=== PATIENT | female | born 1980 | race Caucasian/White ===

== ENCOUNTER 2020-01-06 15:42 | Emergency (ER) | payer OTHER ==
[~2020-01-06] VITALS: Ht 173 cm; Wt 60.0 kg
--- NOTE | 2020-01-06 16:10 | ED Fall/Injury ---
General Stated Complaint: ARM PAIN Source: patient, RN/MD, old records Exam Limitations: no limitations History of Present Illness Date Seen by Provider: Jan 06, 2020 Time Seen by Provider: 16:00 Initial Comments This patient is a 39-year-old female presents to the emergency department significant bruising and swelling to the left upper extremity. Patient states that she was out walking in a [place] with family and she slipped and fell landing on left arm this injury happened 3-4 days ago. Patient does have a history of any injury to left arm for which she had surgery for but this was 3 years ago. Patient states that she came to the emergency department yesterday but there was a significant line so she left and went home. Patient comes back today for significant bruising or swelling. Patient is demanding pain medication. I advised the patient that we do a medical screening exam and evaluate for any fractures. We will dress medication issues after a definitive diagnosis is made. Occurred: other Severity: moderate Injuries/Pain Location: upper extremity Allergies and Home Medications Allergies Coded Allergies: gabapentin (Verified Allergy, Mild, ulcers, 01/06/20) Pt states "ulcers in my mouth" Patient Home Medication List Home Medication List Reviewed: Yes Review of Systems Review of Systems Constitutional: No no symptoms reported, No see HPI, No chills, No diaphoresis, No dizziness, No fever, No malaise, No weakness, No weight gain, No weight loss, No other Eyes: Denies No Symptoms Reported, Denies See HPI, Denies Blindness, Denies Blurred Vision, Denies Drainage, Denies Decreased Acuity, Denies Foreign Body Sensation, Denies Inflammation, Denies Pain, Denies Photophobia, Denies Previous Injury, Denies Shadows, Denies Tunnel Vision, Denies Vision Changes, Denies Contact Lenses, Denies Glasses, Denies Other Ears, Nose, Mouth, Throat: denies no symptoms reported, denies see HPI, denies ear pain, denies ear discharge, denies nose pain, denies nose discharge, denies epistaxis, denies mouth pain, denies mouth swelling, denies loose teeth, denies throat pain, denies throat swelling Respiratory: No no symptoms reported, No see HPI, No cough, No dyspnea on exertion, No hemoptysis, No orthopnea, No phlegm, No short of breath, No stridor, No wheezing, No other Cardiovascular: No no symptoms reported, No see HPI, No chest pain, No edema, No Hx of Intervention, No palpitations, No syncope, No vascular heart diseas, No other Gastrointestinal: No RUQ, No LUQ, No RLQ, No LLQ, No no symptoms reported, No see HPI, No abdominal pain, No constipation, No diarrhea, No dysphagia, No h ematemesis, No heartburn, No jaundice, No loss of appetite, No melena, No nausea, No vomiting, No other Genitourinary: No no symptoms reported, No see HPI, No decreased output, No discharge, No dysuria, No frequency, No hematuria, No hesitancy, No incontinence, No nocturia, No pain, No other Musculoskeletal: No no symptoms reported; see HPI; No back pain, No gout; joint pain; No joint swelling, No muscle pain, No muscle stiffness, No muscle cramps, No muscle twitching, No muscle weakness, No neck pain, No other Skin: No no symptoms reported, No see HPI, No change in color, No change in hair/nails, No dryness, No hx of skin cancer, No lesions, No lumps, No pruritus, No rash, No other All Other Systems Reviewed Negative Unless Noted: Yes Past Hicczyn-Bqdbva-Eryczl Hx Patient Social History Recent Foreign Travel: No Contact w/Someone Who Travel: No Physical Exam Vital Signs Vital Signs - First Documented 01/06/20 16:13 Temp 36.8 Pulse 112 Resp 20 B/P (MAP) 143/103 (116) Pulse Ox 98 O2 Delivery Room Air Capillary Refill : Height, Weight, BMI Height: '" Weight: lbs. oz. kg; BMI Method: General Appearance: WD/WN, no apparent distress Cardiovascular: normal peripheral pulses, regular rate, rhythm, no edema, no gallop, no JVD, no murmur Respiratory: chest non-tender, lungs clear, normal breath sounds, no resp iratory distress, no accessory muscle use Gastrointestinal: normal bowel sounds, non tender, soft, no organomegaly, no pulsatile mass Back: normal inspection, no CVA tenderness, no vertebral tenderness Extremities: swelling, other (treat decreased range of motion of left elbow. Patient has swelling and bruising noted. This injury took place about 3-4 days ago.) Progress/Results/Core Measures Results/Orders Lab Results Laboratory Tests Test 01/06/20 16:45 7/14/20 16:58 Range/Units Urine Color PALE YELLOW Urine Clarity CLEAR Urine pH 7.0 5-9 Urine Specific [place] <=1.005 1.016-1.022 Urine Protein NEGATIVE NEGATIVE Urine Glucose (UA) NEGATIVE NEGATIVE Urine Ketones NEGATIVE NEGATIVE Urine Nitrite NEGATIVE NEGATIVE Urine Bilirubin NEGATIVE NEGATIVE Urine Urobilinogen 0.2 < = 1.0 MG/DL Urine Leukocyte Esterase 1+ H NEGATIVE Urine RBC (Auto) NEGATIVE NEGATIVE Urine RBC NONE /HPF Urine WBC 0-2 /HPF Urine Squamous Epithelial Cells 2-5 /HPF Urine Crystals NONE /LPF Urine Bacteria TRACE /HPF Urine Casts NONE /LPF Urine Mucus NEGATIVE /LPF Urine Culture Indicated NO Urine Opiates Screen NEGATIVE NEGATIVE Urine Oxycodone Screen NEGATIVE NEGATIVE Urine Methadone Screen NEGATIVE NEGATIVE Urine Propoxyphene Screen NEGATIVE NEGATIVE Urine Barbiturates Screen NEGATIVE NEGATIVE Ur Tricyclic Antidepressants Screen NEGATIVE NEGATIVE Urine Phencyclidine Screen NEGATIVE NEGATIVE Urine Amphetamines Screen POSITIVE H NEGATIVE Urine Methamphetamines Screen NEGATIVE NEGATIVE Urine Benzodiazepines Screen POSITIVE H NEGATIVE Urine Cocaine Screen NEGATIVE NEGATIVE Urine Cannabinoids Screen NEGATIVE NEGATIVE White Blood Count 5.8 4.3-11.0 10^3/uL Red Blood Count 3.58 L 4.35-5.85 10^6/uL Hemoglobin 12.4 11.5-16.0 G/DL Hematocrit 36 35-52 % Mean Corpuscular Volume 101 H 80-99 FL Mean Corpuscular Hemoglobin 35 H 25-34 PG Mean Corpuscular Hemoglobin Concent 34 32-36 G/DL Red Cell Distribution Width 12.7 10.0-14.5 % Platelet Count 198 130-400 10^3/uL Mean Platelet Volume 9.9 7.4-10.4 FL Neutrophils (%) (Auto) 57 42-75 % Lymphocytes (%) (Auto) 30 12-44 % Monocytes (%) (Auto) 10 0-12 % Eosinophils (%) (Auto) 1 0-10 % Basophils (%) (Auto) 1 0-10 % Neutrophils # (Auto) 3.4 1.8-7.8 X 10^3 Lymphocytes # (Auto) 1.8 1.0-4.0 X 10^3 Monocytes # (Auto) 0.6 0.0-1.0 X 10^3 Eosinophils # (Auto) 0.1 0.0-0.3 10^3/uL Basophils # (Auto) 0.1 0.0-0.1 10^3/uL Sodium Level 143 135-145 MMOL/L Potassium Level 3.7 3.6-5.0 MMOL/L Chloride Level 101 98-107 MMOL/L Carbon Dioxide Level 29 21-32 MMOL/L Anion Gap 13 5-14 MMOL/L Blood Urea Nitrogen 9 7-18 MG/DL Creatinine 0.61 0.60-1.30 MG/DL Estimat Glomerular Filtration Rate > 60 BUN/Creatinine Ratio 15 Glucose Level 83 70-105 MG/DL Calcium Level 9.5 8.5-10.1 MG/DL My Orders Orders - MARSHA GALLAGHER MD Forearm 2 View Left (01/06/20 16:04) Elbow 2 View Left (01/06/20 16:04) Humerus 2 View Left (01/06/20 16:04) Ice: Apply To Affected Area (01/06/20 16:04) Hydrocodone/Apap 5/325 Tablet (Lortab 5 (01/06/20 16:30) Ed Iv/Invasive Line Start (01/06/20 16:39) Basic Metabolic Panel (01/06/20 16:39) Cbc With Automated Diff (01/06/20 16:39) Urinalysis (01/06/20 16:39) Drug Screen Stat (Urine) (01/06/20 16:39) Morphine Injection (Morphine Injection (01/06/20 16:39) Ondansetron Injection (Zofran Injectio (01/06/20 16:45) Medications Given in ED Current Medications Medications Dose Ordered Sig/Marilu Route Start Time Stop Time Status Last Admin Dose Admin Ondansetron HCl 4 mg ONCE ONCE IVP 01/06/20 16:45 01/06/20 16:46 DC 01/06/20 16:56 4 MG Vital Signs/I&O 01/06/20 16:13 Temp 36.8 Pulse 112 Resp 20 B/P (MAP) 143/103 (116) Pulse Ox 98 O2 Delivery Room Air Progress Progress Note : Time: 17:27 Progress Note Patient has a significantly displaced olecranon fracture of the left elbow. And a distal humeral fracture. Patient first go to [facility]. Case was discussed with Dr Gutierrez orthopedic surgeon. You have an appointment at 9 AM tomorrow in the clinic. [address] [place] [address] Your appointment is 9 AM. The clinic is [place] [address] [place] ice elevation take medications for pain as instructed. Make sure that she make this appointment. Departure Impression Primary Impression: Fracture of olecranon process of left ulna with intra-articular extension Additional Impression: Humerus distal fracture Disposition: 01 HOME, SELF-CARE Condition: Stable Departure-Patient Inst. Decision time for Depature: 17:29 Patient Instructions: Elbow Fracture (DC) Add. Discharge Instructions: Dr Gutierrez orthopedic surgeon. You have an appointment at 9 AM tomorrow in the clinic. [address] [facility] [address] Your appointment is 9 AM. The clinic is just [place] [address] [place] ice elevation take medications for pain as instructed. Make sure that she make this appointment. Scripts Hydrocodone/Ibuprofen (Hydrocodone-Ibuprofen 5-200 mg) 1 Each Tablet 1 TAB PO Q6H PRN for PAIN-MODERATE MDD 10 TABS for 7 Days, #10 TAB 0 Refills Prov: MARSHA GALLAGHER MD 01/06/20 Diclofenac Sodium (Diclofenac Sodium) 75 Mg Tablet. 75 MG PO BID for 10 Days, #20 TAB 0 Refills Prov: MARSHA GALLAGHER MD 01/06/20 MARSHA GALLAGHER MD Jan 06, 2020 16:09
[2020-01-06] MEDS ORDERED: HYDROcodone/APAP 5 MG/325 MG (LORTAB) TAB PO ONE (16:30)
[2020-01-06] MEDS ORDERED: morphine INJ 10 MG/ML 1ML (SYR OR VIAL) IVP STA (16:39)
--- NOTE | 2020-01-06 16:39 | Diagnostic Imaging Report ---
INDICATION: Fall with left elbow pain. TIME OF EXAM: 04:16 p.m. FINDINGS: Three views of the left elbow were obtained. There is a comminuted fracture through the proximal ulna. This largely involves the olecranon. There is moderate distraction of the proximal olecranon fracture fragment which is retracted by approximately 2.5 cm. Proximal radius is intact. The distal humerus is intact. There is an elbow joint effusion with prominent anterior and posterior fat pads. IMPRESSION: Comminuted olecranon fracture with distraction, as described. Dictated by: Dictated on workstation # [id number]
--- NOTE | 2020-01-06 16:40 | Diagnostic Imaging Report ---
INDICATION: Fall with left arm pain. TIME OF EXAM: 04:23 p.m. FINDINGS: Alignment at the elbow and shoulder appears normal. The humerus is intact. No humerus fracture is seen. Soft tissues are unremarkable. IMPRESSION: No humerus fracture is detected. Dictated by: Dictated on workstation # [id number]
[2020-01-06] MEDS ORDERED: ONDANSETRON 4 MG/2 ML (SDV) Z0FRAN IVP ONE (16:45)
--- NOTE | 2020-01-06 16:45 | Diagnostic Imaging Report ---
INDICATION: Fall several days earlier with worsening pain in the region of the elbow. TECHNIQUE: 2 views of the left forearm. CORRELATION STUDY: None FINDINGS: There is a comminuted fracture involving the proximal ulna. There is significant distraction and displacement main fracture fragments. There is offset of approximately 2.5 cm. Additional obliquely oriented fracture involving the ulna is also present. Slight irregularity about the radial head along its dorsal aspect question of a nondisplaced fracture. There is extensive edema over the region of the elbow and forearm. The remainder of the radius and ulna are intact. There is a cortical thickening at the mid ulna shaft may reflect a previous injury. IMPRESSION: 1. Comminuted, displaced proximal ulna fracture. Question of slight irregularity at the radial head as well. Extensive edema about the elbow and proximal forearm. Dictated by: Dictated on workstation # [id number]
[2020-01-06 16:59] LABS: COLOR,URINE PALE YELLOW
[2020-01-06 17:00] LABS: BACTERIA,URINE TRACE /HPF; BILIRUBIN,URINE NEGATIVE (NEGATIVE); CLARITY,URINE CLEAR; GLUCOSE, URINE (UA) NEGATIVE (NEGATIVE); KETONES,URINE NEGATIVE (NEGATIVE); LEUKOCYTE ESTERASE ,URINE 1+ (NEGATIVE); NITRITE,URINE NEGATIVE (NEGATIVE); PROTEIN,URINE NEGATIVE (NEGATIVE); WBC,URINE 0-2 /HPF
[2020-01-06 17:07] LABS: BASOPHILS % (AUTO) 1 % (0-10); EOSINOPHILS % (AUTO) 1 % (0-10); HEMATOCRIT 36 % (35-52); HEMOGLOBIN 12.4 G/DL (11.5-16.0); LYMPHOCYTES % (AUTO) 30 % (12-44); MEAN CORPUSCULAR HEMOGLOBIN 35 PG (25-34); MEAN CORPUSCULAR HGB CONC 34 G/DL (32-36); MEAN CORPUSCULAR VOLUME 101 FL (80-99); MEAN PLATELET VOLUME 9.9 FL (7.4-10.4); MONOCYTES % (AUTO) 10 % (0-12); NEUTROPHILS % (AUTO) 57 % (42-75); PLATELET COUNT 198 10^3/uL (130-400); RED CELL DISTRIBUTION WIDTH 12.7 % (10.0-14.5); WHITE BLOOD COUNT 5.8 10^3/uL (4.3-11.0)
[2020-01-06 17:08] LABS: BASOPHILS # (AUTO) 0.1 10^3/uL (0.0-0.1); EOSINOPHILS # (AUTO) 0.1 10^3/uL (0.0-0.3); LYMPHOCYTES # (AUTO) 1.8 X 10^3 (1.0-4.0); MONOCYTES # (AUTO) 0.6 X 10^3 (0.0-1.0); NEUTROPHILS # (AUTO) 3.4 X 10^3 (1.8-7.8)
[2020-01-06 17:17] LABS: AMPHETAMINE SCREEN, URINE POSITIVE (NEGATIVE); BARBITURATE SCREEN URINE NEGATIVE (NEGATIVE); BENZODIAZEPINES SCREEN URINE POSITIVE (NEGATIVE); CANNABINOID SCREEN, URINE NEGATIVE (NEGATIVE); COCAINE SCREEN URINE NEGATIVE (NEGATIVE); METHADONE STAT NEGATIVE (NEGATIVE); METHAMPHETAMINE SCREEN URINE S NEGATIVE (NEGATIVE); OPIATE SCREEN URINE NEGATIVE (NEGATIVE); OXYCODONE STAT NEGATIVE (NEGATIVE); PROPOXYPHENE STAT NEGATIVE (NEGATIVE); TRICYCLIC ANTIDEPRESSANTS SCRE NEGATIVE (NEGATIVE)
[2020-01-06 17:26] LABS: BUN/CREATININE RATIO 15; CALCIUM 9.5 MG/DL (8.5-10.1); CARBON DIOXIDE 29 MMOL/L (21-32); CHLORIDE 101 MMOL/L (98-107); CREATININE SERUM 0.61 MG/DL (0.60-1.30); GFR ESTIMATED > 60; GLUCOSE 83 MG/DL (70-105); POTASSIUM 3.7 MMOL/L (3.6-5.0); SODIUM 143 MMOL/L (135-145)
[2020-01-06] MEDS ORDERED: HYDR-3990 PO (17:30)
[2020-01-06] MEDS ORDERED: DICL75TA2 PO (17:30)
--- NOTE | 2020-01-06 17:33 | NUR ---
Full left posterior arm splint placed. Arm sock, padding, 3" OCL, 3" YANIRA x3, and placed in her own sling that she arrived in. Pt DNV's intact pre and post splint application. Prescriptions printed and given to pt. Information on 9am appointment and address given to pt with discharge.
[2020-01-06 17:43] VITALS: BP 129/101
--- OUTSIDE RECORDS SUMMARY | 2020-01-06 20:47 | XMS REPORT | Continuity of Care Document ---
Author Organization Unknown Address Unknown Phone Unavailable Allergies There is no data. Medications There is no data. Problems There is no data. Procedures There is no data. Results There is no data. Encounters ACCT No. Visit Date/Time Discharge Status Pt. Type Provider Facility Loc./Unit Complaint [id number] 01/06/2020 15:43:00 020 17:43:00 DIS Emergency AILEEN OSUNA, MARSHA Acevedo [facility] ER FS FELL;ARM PAIN
== END 2020-01-06 17:43 | disposition home or self-care (01) ==
LOC: ER FS 15:43
DX: S52.032A Displaced fracture of olecranon process with intraarticular extension of left ulna, initial encounter for closed fracture (principal); S42.402A Unspecified fracture of lower end of left humerus, initial encounter for closed fracture; Z88.8 Allergy status to other drugs, medicaments and biological substances; W01.0XXA Fall on same level from slipping, tripping and stumbling without subsequent striking against object, initial encounter
CPT/HCPCS: 29105; 36415; 73060; 73070; 73090; 80048; 80306; 81000; 85025; 99284; A4565

== ENCOUNTER 2020-01-15 22:36 | Emergency (ER) | payer OTHER ==
[~2020-01-15] VITALS: Ht 175.3 cm; Wt 58.8 kg
[~2020-01-15 22:36] MED LIST: DICL75TA2 PO; HYDR-3990 PO
--- OUTSIDE RECORDS SUMMARY | 2020-01-15 22:40 | XMS REPORT | Continuity of Care Document ---
Author Organization Unknown Address Unknown Phone Unavailable Allergies Active Description Code Type Severity Reaction Onset Reported/Identified Relationship to Patient Clinical Status Yes gabapentin [id number] Drug Allerg y Mild ulcers 01/06/2020 Medications There is no data. Problems Date Dx Coded Attending Type Code Diagnosis Diagnosed By 01/08/2020 AILEEN OSUNA, MARSHA Acevedo Ot M25.522 PAIN IN LEFT ELBOW 01/08/2020 MARSHA GALLAGHER MD Ot S42.402A UNSP FRACTURE OF LOWER END OF LEFT HUMER 01/08/2020 MARSHA GALLAGEHR MD Ot S52.032A DISP FX OF OLECRAN PRO W INTARTIC EXTN L 01/08/2020 MARSHA GALLAGHER MD, Ot W01.0XXA FALL SAME LEV FROM SLIP/TRIP W/O STRIKE 01/08/2020 MARSHA GALLAGHER MD Ot Z88.8 ALLERGY STATUS TO OTH DRUG/MEDS/BIOL SUB Procedures There is no data. Results Test Result Range Complete urinalysis with reflex to cultu re - 01/06/20 16:45 Urine color determination PALE YELLOW N RG Urine clarity determination CLEAR NR G Urine pH measurement by test strip 7.0 5-9 Specific gravity of urine by test strip <= 1.016-1.022 Urine protein assay by test strip, semi-quantitative NEGATIVE NEGATIVE Urine glucose detection by automated test strip NE GATIVE NEGATIVE Erythrocytes detection in urine sediment by light micr oscopy NEGATIVE NEGATIVE Urine ketones detection by automated test strip NE GATIVE NEGATIVE Urine nitrite detection by test strip NEGATIVE NEGATIVE Urine total bilirubin detection by test strip NEGA TIVE NEGATIVE Urine urobilinogen measurement by automated test strip (mass/volume) 0.2 mg/dL < = 1.0 Urine leukocyte esterase detection by dipstick 1+ NEGATIVE Automated urine sediment erythrocyte cou nt by microscopy (number/high power field) NONE NRG Automated urine sediment leukocyte count by microscopy (number/high power field) [HPF] NRG Bacteria detection in urine sediment by light microsco py TRACE NRG Squamous epithelial cells detection in u rine sediment by light microscopy 2-5 NRG Crystals detection in urine sediment by light microsco py NONE NRG Casts detection in urine sediment by light microscopy NONE NRG Mucus detection in urine sediment by light microscopy NEGATIVE NRG Complete urinalysis with reflex to culture NO NRG Urine drug screening test - 01/06/20 16: 45 Urine phencyclidine detection by screening method NEGATIVE NEGATIVE Urine benzodiazepines detection by screening method POSITIVE NEGATIVE Urine cocaine detection NEGATIVE NEGATI VE Urine amphetamines detection by screening method P OSITIVE NEGATIVE Urine methamphetamine detection by screening method NEGATIVE NEGATIVE Urine cannabinoids detection by screening method N EGATIVE NEGATIVE Urine opiates detection by screening method NEGATI VE NEGATIVE Urine barbiturates detection NEGATIVE N EGATIVE Screening urine tricyclic antidepressants detection NEGATIVE NEGATIVE Urine methadone detection by screening method NEGA TIVE NEGATIVE Urine oxycodone detection NEGATIVE NEGA TIVE Urine propoxyphene detection NEGATIVE N EGATIVE Complete blood count (CBC) with automate d white blood cell (WBC) differential - 01/06/20 16:58 Blood leukocytes automated count (number/volume) 5.8 10*3/uL 4.3-11.0 Blood erythrocytes automated count (number/volume) 3.58 10*6/uL 4.35-5.85 Venous blood hemoglobin measurement (mass/volume) 12.4 g/dL 11.5-16.0 Blood hematocrit (volume fraction) 36 % 35-52 Automated erythrocyte mean corpuscular volume 101 [foz_us] 80-99 Automated erythrocyte mean corpuscular h emoglobin (mass per erythrocyte) 35 pg 25-34 Automated erythrocyte mean corpuscular h emoglobin concentration measurement (mass/volume) 34 g/dL 32-36 Automated erythrocyte distribution width ratio 12. 7 % 10.0- 14.5 Automated blood platelet count (count/volume) 198 10*3/uL 130-400 Automated blood platelet mean volume measurement 9.9 [foz_us] 7.4-10.4 Automated blood neutrophils/100 leukocytes 57 % 42-75 Automated blood lymphocytes/100 leukocytes 30 % 12-44 Blood monocytes/100 leukocytes 10 % 0-12 Automated blood eosinophils/100 leukocytes 1 % 0-10 Automated blood basophils/100 leukocytes 1 % 0-10 Blood neutrophils automated count (number/volume) 3.4 10*3 1.8-7.8 Blood lymphocytes automated count (number/volume) 1.8 10*3 1.0-4.0 Blood monocytes automated count (number/volume) 0. 6 10*3 0.0-1.0 Automated eosinophil count 0.1 10*3/uL 0 .0-0.3 Automated blood basophil count (count/volume) 0.1 10*3/uL 0.0-0.1 Whole blood basic metabolic panel - 12/23 10/12 16:58 Serum or plasma sodium measurement (moles/volume) 143 mmol/L 135-145 Serum or plasma potassium measurement (moles/volume) 3.7 mmol/L 3.6-5.0 Serum or plasma chloride measurement (moles/volume) 101 mmol/L 98-107 Carbon dioxide 29 mmol/L 21-32 Serum or plasma anion gap determination (moles/volume) 13 mmol/L 5-14 Serum or plasma urea nitrogen measurement (mass/volume ) 9 mg/dL 7-18 Serum or plasma creatinine measurement (mass/volume) 0.61 mg/dL 0.60-1.30 Serum or plasma urea nitrogen/creatinine mass ratio 15 NRG Serum or plasma creatinine measurement w ith calculation of estimated glomerular filtration rate > NRG Serum or plasma glucose measurement (mass/volume) 83 mg/dL 70-105 Serum or plasma calcium measurement (mass/volume) 9.5 mg/dL 8.5-10.1 Encounters ACCT No. Visit Date/Time Discharge Status Pt. Type Provider Facility Loc./Unit Complaint [id number] 01/06/2020 15:43:00 020 17:43:00 DIS Outpatient AILEEN OSUNA, MARSHA Acevedo [facility] ER FS FELL;ARM PAIN
[2020-01-15 22:52] VITALS: BP 136/88
[2020-01-15] MEDS ORDERED: IBUPROFEN 800 MG (MOTRIN) TAB PO ONE (23:00)
--- NOTE | 2020-01-15 23:05 | ED Upper Extremity ---
General Chief Complaint: Upper Extremity Stated Complaint: ARM PAIN Nursing Triage Note: PT AMBULATE TO ROOM FS02 WITH C/O LEFT ARM PAIN RELATED TO FX X8 DAYS AGO. PT STATES ARM HURTS. Nursing Sepsis Screen: No Definite Risk History of Present Illness Date Seen by Provider: Jan 15, 2020 Time Seen by Provider: 10:35 Initial Comments The patient is a 39-year-old female who is right-hand dominant. 8 days ago she was seen here and diagnosed with a displaced fracture of the olecranon process of her left ulna. She was referred to [facility] for definitive surgical repair and this was accomplished about one week ago. Patient was discharged from with a prescription for hydrocodone for postoperative pain. She states she took the last pill this morning. Since she ran out of her hydrocodone her elbow has been hurting more. She denies fevers, nausea or vomiting, loss of sensation or strength in the distal left arm, any other new symptoms or concerns. Allergies and Home Medications Allergies Coded Allergies: gabapentin (Verified Allergy, Mild, ulcers, 01/06/20) Pt states "ulcers in my mouth" Home Medications Diclofenac Sodium 75 Mg Tablet.dr, 75 MG PO BID Prescribed by: MARSHA GALLAGHER on 01/06/20 173 Hydrocodone/Ibuprofen 1 Each Tablet, 1 TAB PO Q6H PRN for PAIN-MODERATE Prescribed by: MARSHA GALLAGHER on 01/06/20 1730 Patient Home Medication List Home Medication List Reviewed: Yes Review of Systems Constitutional: see HPI All Other Systems Reviewed Negative Unless Noted: Yes (Negative excepted noted.) Past Ztukbul-Hnjxdc-Eahpez Hx Past Med/Social Hx: Reviewed Nursing Past Med/Soc Hx Patient Social History Alcohol Use: Denies Use Recreational Drug Use: No Smoking Status: Never a Smoker Type Used: Electronic/Vapor 2nd Hand Smoke Exposure: No Recent Foreign Travel: No Contact w/Someone Who Travel: No Recent Infectious Disease Expo: No Recent Hopitalizations: No Physical Abuse: No Sexual Abuse: No Mistreated: No Fear: No Seasonal Allergies Seasonal Allergies: No Past Medical History Surgeries: Yes Orthopedic Respiratory: No Cardiac: No Neurological: No Genitourinary: No Gastrointestinal: No Musculoskeletal: No Endocrine: No HEENT: No Cancer: No Psychosocial: Yes ADD/ADHD, Anxiety Integumentary: No Blood Disorders: No Adverse Reaction/Blood Tranf: No Family Medical History Reviewed Nursing Family Hx Physical Exam Vital Signs Vital Signs - First Documented 01/15/20 22:52 Temp 36.8 Pulse 128 Resp 14 B/P (MAP) 136/88 (104) O2 Delivery Room Air Capillary Refill : Less Than 3 Seconds Height, Weight, BMI Height: '" Weight: lbs. oz. kg; 19.00 BMI Method: General Appearance: no apparent distress This is a middle-aged female appearing nontoxic and in no acute distress. Head is normocephalic and atraumatic. Neck is supple and nontender. Oropharynx is moist. Lungs are clear to auscultation at all stations. There is a normal S1 and S2 without rubs or gallops and capillary refill is appropriate, less than 2 seconds globally. Abdomen is soft, nontender and nondistended. Skin is warm and dry without cyanosis, clubbing or edema. Psychiatrically, the patien t in a straights appropriate mood and affect and is alert. Examination of the left upper extremity is remarkable for a healing incision site over the olecranon of the left elbow with raissa in place without erythema, warmth, swelling, significant tenderness or any dehiscence. No purulent drainage noted. Patient has reasonable range of motion of the left elbow and there is no joint irritability noted. Normal range of motion of all other joints of the left upper extremity without any tenderness. No significant swelling to the left arm. No tenderness to palpation anywhere. Left upper extremity is neurovascularly intact distally with strength 5 out of 5, sensation intact to light touch in median, radial and ulnar nerve disruption patient, radial pulse 2+, capillary refill less than 2 seconds, hand warm and well-perfused. Progress/Results/Core Measures Results/Orders My Orders Orders - MICHELLE RAMOS MD Ibuprofen Tablet (Motrin Tablet) (01/15/20 23:00) Vital Signs/I&O 01/15/20 22:52 Temp 36.8 Pulse 128 Resp 14 B/P (MAP) 136/88 (104) O2 Delivery Room Air Blood Pressure Mean: 104 Progress Progress Note : Time: 23:02 Progress Note Discussed with the patient that her postoperative pain must be managed by her operating surgeon and that we are not able to provide ongoing refills on pain medication. Counseled the patient that as a one-time courtesy I would provide a short course of the narcotic medication the patient was prescribed by the orthopedic physician last week but that she would not be able to obtain additional narcotic prescriptions from us for her elbow fracture. Patient has follow-up at with her orthopedist in early January and she is counseled to keep that appointment. Clinical examination is reassuring and there is no evidence of postoperative infection or other acute process to the left arm at this time. Patient's postop dressing was soiled and will remove and replace it. She understands that if she feels worse is that of better or develops other new symptoms of concern that she should return to the emergency department immediately for reevaluation. All questions are answered. Departure Impression Primary Impression: Fracture of olecranon process of left ulna with intra-articular extension Qualified Codes: S52.032D - Displaced fracture of olecranon process with intraarticular extension of left ulna, subsequent encounter for closed fracture with routine healing Disposition: HOME, SELF-CARE Condition: Improved Departure-Patient Inst. Referrals: NO,LOCAL PHYSICIAN (PCP/Family) Primary Care Physician Patient Instructions: Elbow Fracture (DC) Add. Discharge Instructions: Follow-up very closely with your operating surgeon at [facility] in early January at your scheduled appointment. You may take a diclofenac pill every 8 hours as needed for pain and may take a hydrocodone pill every 6 hours as needed for pain that is not well controlled with diclofenac alone. Be careful because the hydrocodone can make you sleepy so don't drive or work or operate machinery while taking it. Rest, ice and elevate your arm. Return to the emergency department right away with worsening symptoms or with any other new symptoms of concern. As we discussed this evening, we are providing a one-time courtesy short refill of your hydrocodone pain medication. Further pain medications for your elbow injury will need to be provided by your operating surgeon. Scripts Hydrocodone/Acetaminophen (Hydrocodone-Acetamin 5-325 mg) 1 Each Tablet 1 TAB PO Q6H for Breakthrough Pain, #8 TAB 0 Refills Prov: MICHELLE RAMOS MD 01/15/20 Diclofenac Potassium (Diclofenac Potassium) 50 Mg Tablet 50 MG PO TID for Pain, #30 TAB Prov: MICHELLE RAMOS MD 01/15/20 MICHELLE RAMOS MD Jan 15, 2020 23:04
[2020-01-15] MEDS ORDERED: DICL50TA4 PO (23:08)
[2020-01-15] MEDS ORDERED: HYDR-83 PO (23:08)
== END 2020-01-15 23:13 | disposition home or self-care (01) ==
LOC: EDUNIT# 22:36 → ER FS 22:37
DX: S62.032D Displaced fracture of proximal third of navicular [scaphoid] bone of left wrist, subsequent encounter for fracture with routine healing (principal); Z88.8 Allergy status to other drugs, medicaments and biological substances; X58.XXXD Exposure to other specified factors, subsequent encounter
CPT/HCPCS: 99283

== ENCOUNTER 2022-04-16 06:25 | Observation (INO) | payer OTHER ==
[~2022-04-16] VITALS: Ht 175.3 cm; Wt 57.0 kg
[~2022-04-16 06:25] MED LIST changes: +ACHD5005 PO; +DICL50TA4 PO
[2022-04-16] MEDS ORDERED: ONDANSETRON 4 MG (ZOFRAN) ORAL DISSOLVE TAB ONE (06:50)
[2022-04-16] MEDS ORDERED: ONDANSETRON 4 MG (ZOFRAN) ORAL DISSOLVE TAB PO STA (06:51)
--- NOTE | 2022-04-16 06:58 | ED GI ---
General Chief Complaint: Abdominal/GI Problems Stated Complaint: VOMITING,FEVER,CHILLS,HEADACHE Nursing Triage Note: Pt states she has been vomiting since . Pt states she had a headache on but doesn't have one currently. Source of Information: Patient Exam Limitations: No Limitations (TRIXIE DON MD) History of Present Illness Date Seen by Provider: Apr 16, 2022 Time Seen by Provider: 06:40 Initial Comments 41-year-old female patient with history of ADHD and anxiety presented POV with complaining of nausea and vomiting for the last 4 days. Patient complaining of about 10 episodes of vomiting for the last 4 days that getting better today patient states she has worsening of fresh blood in her vomiting and complaining of epigastric pain during episode of vomiting. Patient complaining of right temporal headache intermittently and dizziness that is started just after arrival to ER. Reported subjective fever and chills and generalized weakness with throat pain after episodes of vomiting. Patient stated her last bowel movement was 4 days ago and cannot tell about any urinary problem. Patient states is the fifth times during the last 1 year that she has had episodes of vomiting and her sister is concerned that may be the christina that she is dating, poisoning her.Patient brought a sample of her vomiting for toxicology evaluation. Patient stated she drinks alcohol and using marijuana occasionally and denies using other illegal drugs. Timing/Duration: 3-4 Days, Intermittent Severity/Quality: Moderate Location: Epigastric Associated Symptoms: Fever/Chills (Subjective) (TRIXIE DON MD) Allergies and Home Medications Allergies Coded Allergies: gabapentin (Verified Allergy, Mild, ulcers, 01/06/20) Pt states "ulcers in my mouth" Patient Home Medication List Home Medication List Reviewed: Yes (TRIXIE DON MD) Home Medication List Reviewed: Yes (OMAR GOLDSTEIN MD) Diclofenac Potassium (Diclofenac Potassium) 50 Mg Tablet, 50 MG PO TID Prescribed by: MICHELLE RAMOS on 01/15/202307 Diclofenac Sodium (Diclofenac Sodium) 75 Mg Tablet.dr, 75 MG PO BID Prescribed by: MARSHA GALLAGHER on 01/06/20 173 Hydrocodone/Acetaminophen (Hydrocodone-Acetamin 5-325 mg) 1 Each Tablet, 1 TAB PO Q6H Prescribed by: MICHELLE RAMOS on 7/23/20 2308 Hydrocodone/Ibuprofen (Hydrocodone-Ibuprofen 5-200 mg) 1 Each Tablet, 1 TAB PO Q6H PRN for PAIN-MODERATE Prescribed by: MARSHA GALLAGHER on 01/06/20 1730 Review of Systems Review of Systems Constitutional: see HPI EENTM: See HPI Respiratory: See HPI Cardiovascular: See HPI Gastrointestinal: See HPI Genitourinary: See HPI Musculoskeletal: see HPI Skin: see HPI Psychiatric/Neurological: See HPI Endocrine: See HPI Hematologic/Lymphatic: See HPI (TRIXIE DON MD) All Other Systems Reviewed Negative Unless Noted: Yes (TRIXIE DON MD) Past Kpxyifw-Oskkol-Drgrrw Hx Patient Social History Tobacco Use?: No Use of E-Cig and/or Vaping dev: No Substance use?: No Alcohol Use?: Yes Pt feels they are or have been: No (TRIXIE DON MD) Seasonal Allergies Seasonal Allergies: No (TRIXIE DON MD) Past Medical History Surgeries: Yes Orthopedic Respiratory: No Cardiac: No Neurological: No Genitourinary: No Gastrointestinal: No Musculoskeletal: No Endocrine: No HEENT: No Cancer: No Psychosocial: Yes ADD/ADHD, Anxiety Integumentary: No Blood Disorders: No Adverse Reaction/Blood Tranf: No (TRIXIE DON MD) Physical Exam Vital Signs Vital Signs - First Documented 04/16/22 06:30 Temp 36.9 Pulse 110 Resp 18 B/P (MAP) 170/104 (126) Pulse Ox 99 O2 Delivery Room Air (OMAR GOLDSTEIN MD) Vital Signs Capillary Refill : Less Than 3 Seconds (TRIXIE DON MD) Height/Weight/BMI Height: '" Weight: lbs. oz. kg; 19.00 BMI Method: General Appearance: mild distress HEENT: PERRL/EOMI, normal ENT inspection Neck: non-tender, full range of motion, supple Respiratory: chest non-tender, lungs clear, normal breath sounds, no respiratory distress Cardiovascular: no edema, no gallop, no murmur, tachycardia Gastrointestinal: normal bowel sounds, non tender, soft, no organomegaly Extremities: normal range of motion, non-tender, normal inspection, no pedal edema, no calf tenderness Back: normal inspection, no CVA tenderness, no vertebral tenderness Neurologic/Psychiatric: alert, other (Anxious) Skin: normal color, warm/dry (TRIXIE DON MD) Focused Exam Lactate Level 04/16/22 07:49: Lactic Acid Level 1.38 (OMAR GOLDSTEIN MD) Lactic Acid Level Laboratory Tests Test 04/16/22 07:49 Lactic Acid Level 1.38 MMOL/L (0.50-2.00) (OMAR GOLDSTEIN MD) Progress/Results/Core Measures Results/Orders Lab Results Laboratory Tests Test 04/16/22 06:34 04/16/22 06:53 04/16/22 07:03 04/16/22 07:49 Range/Units Influenza Type A (RT-PCR) Not Detected Not Detecte Influenza Type B (RT-PCR) Not Detected Not Detecte SARS-CoV-2 RNA (RT-PCR) Not Detected Not Detecte Urine Color YELLOW Urine Clarity CLEAR Urine pH 6.0 5-9 Urine Specific [place] >=1.030 1.016-1.022 Urine Protein 2+ H NEGATIVE Urine Glucose (UA) NEGATIVE NEGATIVE Urine Ketones 2+ H NEGATIVE Urine Nitrite NEGATIVE NEGATIVE Urine Bilirubin 2+ H NEGATIVE Urine Urobilinogen 0.2 < = 1.0 MG/DL Urine Leukocyte Esterase NEGATIVE NEGATIVE Urine RBC (Auto) NEGATIVE NEGATIVE Urine RBC NONE /HPF Urine WBC NONE /HPF Urine Squamous Epithelial Cells 5-10 /HPF Urine Crystals NONE /LPF Urine Bacteria FEW H /HPF Urine Casts PRESENT /LPF Urine Hyaline Casts 0-2 H /LPF Urine Mucus SMALL H /LPF Urine Culture Indicated NO Urine Test NEGATIVE NEGATIVE Urine Opiates Screen NEGATIVE NEGATIVE Urine Oxycodone Screen NEGATIVE NEGATIVE Urine Methadone Screen NEGATIVE NEGATIVE Urine Propoxyphene Screen NEGATIVE NEGATIVE Urine Barbiturates Screen NEGATIVE NEGATIVE Ur Tricyclic Antidepressants Screen NEGATIVE NEGATIVE Urine Phencyclidine Screen NEGATIVE NEGATIVE Urine Amphetamines Screen NEGATIVE NEGATIVE Urine Methamphetamines Screen NEGATIVE NEGATIVE Urine Benzodiazepines Screen POSITIVE H NEGATIVE Urine Cocaine Screen NEGATIVE NEGATIVE Urine Cannabinoids Screen POSITIVE H NEGATIVE White Blood Count 18.9 H 4.3-11.0 10^3/uL Red Blood Count 4.33 3.80-5.11 10^6/uL Hemoglobin 15.1 11.5-16.0 g/dL Hematocrit 41 35-52 % Mean Corpuscular Volume 94 80-99 fL Mean Corpuscular Hemoglobin 35 H 25-34 pg Mean Corpuscular Hemoglobin Concent 37 H 32-36 g/dL Red Cell Distribution Width 10.9 10.0-14.5 % Platelet Count 265 130-400 10^3/uL Mean Platelet Volume 10.4 9.0-12.2 fL Immature Granulocyte % (Auto) 0 % Neutrophils (%) (Auto) 86 H 42-75 % Lymphocytes (%) (Auto) 7 L 12-44 % Monocytes (%) (Auto) 7 0-12 % Eosinophils (%) (Auto) 0 0-10 % Basophils (%) (Auto) 0 0-10 % Neutrophils # (Auto) 16.3 H 1.8-7.8 10^3/uL Lymphocytes # (Auto) 1.3 1.0-4.0 10^3/uL Monocytes # (Auto) 1.2 H 0.0-1.0 10^3/uL Eosinophils # (Auto) 0.0 0.0-0.3 10^3/uL Basophils # (Auto) 0.0 0.0-0.1 10^3/uL Immature Granulocyte # (Auto) 0.1 0.0-0.1 10^3/uL Neutrophils % (Manual) 87 % Lymphocytes % (Manual) 5 % Monocytes % (Manual) 8 % Sodium Level 125 *L 135-145 MMOL/L Potassium Level 3.1 L 3.6-5.0 MMOL/L Chloride Level 73 L 98-107 MMOL/L Carbon Dioxide Level 24 21-32 MMOL/L Anion Gap 28 H 5-14 MMOL/L Blood Urea Nitrogen 24 H 7-18 MG/DL Creatinine 0.91 0.60-1.30 MG/DL Estimat Glomerular Filtration Rate 80 BUN/Creatinine Ratio 26 Glucose Level 141 H 70-105 MG/DL Calcium Level 12.3 H 8.5-10.1 MG/DL Corrected Calcium 8.5-10.1 MG/DL Total Bilirubin 0.9 0.1-1.0 MG/DL Aspartate Amino Transf (AST/SGOT) 43 H 5-34 U/L Alanine Aminotransferase (ALT/SGPT) 38 0-55 U/L Alkaline Phosphatase 58 40-136 U/L Total Protein 8.9 H 6.4-8.2 GM/DL Albumin 5.5 H 3.2-4.5 GM/DL Lipase 38 8-78 U/L Serum Alcohol < 10 <10 MG/DL Lactic Acid Level 1.38 0.50-2.00 MMOL/L (OMAR GOLDSTEIN MD) My Orders Orders - OMAR GOLDSTEIN MD Blood Culture (04/16/22 07:46) Alcohol (04/16/22 07:46) Lactic Acid Analyzer (04/16/22 07:46) Ct Abdomen/Pelvis W (04/16/22 07:46) Ns Iv 1000 Ml (Sodium Chloride 0.9%) (04/16/22 07:47) Pantoprazole Injection (Protonix Injecti (04/16/22 07:47) Ondansetron Injection (Zofran Injectio (04/16/22 07:47) Iohexol Injection (Omnipaque 350 Mg/Ml 1 (04/16/22 08:00) Received Contrast (Hold Metformin- Contr (04/16/22 08:00) Sodium Chloride Flush (Catheter Flush Sy (04/16/22 08:00) Ns (Ivpb) (Sodium Chloride 0.9% Ivpb Bag (04/16/22 08:00) Potassium Cl 10meq/50ml Ivpb (Kcl 10 Meq (04/16/22 08:02) Ed Admission (Communication) (04/16/22 08:44) (OMAR GOLDSTEIN MD) Medications Given in ED Current Medications Medications Dose Ordered Sig/Marilu Route Start Time Stop Time Status Last Admin Dose Admin Iohexol 100 ml ONCE ONCE IV 04/16/22 08:00 04/16/22 08:01 DC 04/16/22 08:15 75 ML Sodium Chloride 10 ml NEEDED PRN IV 04/16/22 08:00 04/16/22 08:16 10 ML Sodium Chloride 100 ml ONCE ONCE IV 04/16/22 08:00 04/16/22 08:01 DC 04/16/22 08:16 80 ML (OMAR GOLDSTEIN MD) Vital Signs/I&O 04/16/22 04/16/22 06:30 08:41 Temp 36.9 35.4 Pulse 110 89 Resp 18 18 B/P (MAP) 170/104 (126) 146/96 Pulse Ox 99 99 O2 Delivery Room Air Room Air (OMAR GOLDSTEIN MD) Blood Pressure Mean: 126 Progress Progress Note : Progress Note @0703: Evaluation of patient in ER showed 41-year-old female patient with complaining of episode of nausea and vomiting for the last 4 days and concern for intoxication by her significant other. Patient had more tachycardia and unable to answer some of the question and complaining of dizziness at arrival to ER. Labs is pending. Patient care transferred to Dr. Goldstein at 0700. (TRIXIE DON MD) Progress Note #1: Time: 07:18 Progress Note I assumed care of patient from Dr. Don at shift change. Patient has negative influenza and Covid swab. Her CBC shows elevated WBC count to 18.9 with left shift. UDS positive for marijuana and benzodiazepines. Negative . UA shows signs of dehydration with elevated specific gravity to >1.030, 2 + Ketones, 2+ Protein and bilirubin. With her elevated WBC count will add on CT sc an of abdomen and pelvis to evaluate for acute process that might be infectious for source of elevated WBC. This may also just be from stress reaction with n/v for 4 days and dehydration. Progress Note #2: Time: 07:38 Progress Note Chemistry panel shows hyponatremia with sodium down to 125. She has potassium low at 3.1. Elevated BUN to 24 and glucose to 141. Her anion gap is elevated to 28 as well. Lipase is normal. Will add on blood cultures with lactic acid and alcohol level. Will check with Dr. Gooden for hospitalist service about admit for hyponatremia with n/v and dizziness indicating she is symptomatic with the low sodium. That is provided she does not have pathology on CT scan indicating need for surgery consult. When updating patient she was agreeable to admit. She complained of periumbilical abdominal pain and had subjective fever and chills at home. Her abdomen was soft with active bowel sounds and no guarding or rebound or rigidity on my physical exam. Will add on more IVF of 1 L NS bolus for hydration, additional Zofran 4 mg IV for nausea, Pantoprazole 40 mg IV for possible ga stritis with her complaint of seeing blood in vomit this am and n/v for 4 days. Progress Note #3: Time: 08:34 Progress Note Lactic acid was not elevated at 1.38. Her alcohol level was <10. CT scan of abdomen/pelvis with IV contrast shows no acute pathology to account for her elevated WBC with n/v and abdominal pain, such as appendicitis, cholecystitis, colitis, diverticulitis, pyelonephritis, pancreatitis. She does have distal esophagus wall thickening consistent with her vomiting. Will page Dr. Gooden for hospitalist service since patient follows with Tere Neville in [facility] and does not have local PCP. (OMAR GOLDSTEIN MD) Diagnostic Imaging Diagonstic Imaging: CT Plain Films/CT/US/NM/MRI: abdomen, pelvis Comments NAME: NINA ELMORE [facility] REC#: [id number] PT STATUS: REG ER : 1980 PHYSICIAN: OMAR GOLDSTEIN MD ADMIT DATE: 04/16/22/ER FS Draft Date of Exam:04/16/22 CT ABDOMEN/PELVIS W CT ABDOMEN/PELVIS W TECHNIQUE: Multiple contiguous axial images were obtained through the abdomen and pelvis after administration of intravenous contrast. All CT scans use one or more of the following dose optimizing techniques: automated exposure control, MA and/or KvP adjustment based on patient size and exam type or iterative reconstruction. INDICATION: Periumbilical pain, nausea, vomiting and diarrhea. COMPARISON: None available. FINDINGS: Lower chest: The lung bases are clear. No pericardial or pleural effusion. Peritoneum: No free intraperitoneal air or fluid. Liver and biliary system: Diffuse low-attenuation liver raises the possibility of hepatic steatosis. No focal hepatic lesion. The gallbladder is normal. No biliary duct dilation. Spleen and Pancreas: Multiple punctate calcified nodules in the spleen are present and due to old granulomas infection. The pancreas enhances normally without mass lesion or peripancreatic inflammatory changes. Adrenals: Normal. tract: The kidneys enhance normally without suspicious mass or obstruction. Urinary bladder is distended without wall thickening. No renal or ureteral stones. IUD is appropriately positioned within the uterus. No adnexal mass. GI tract: Distal esophagus has circumferential wall thickening likely due to esophagitis associated with vomiting. Stomach is partially filled with fluid and does not have wall thickening. No bowel obstruction. No pericolonic inflammatory changes. Normal appendix. Vasculature and Lymph nodes: Normal caliber aorta. No abdominal or pelvic lymphadenopathy. Musculoskeletal: No concerning osseous lesion. Small fat-containing umbilical hernia. IMPRESSION: 1. Normal appendix. 2. No bowel obstruction. 3. No urinary tract stones or obstructive uropathy. 4. Wall thickening of distal esophagus is likely due to esophagitis associated with vomiting. Dictated on workstation # [id number] Dict: 04/16/22819 Trans: 04/16/22825 CV [id number] Interpreted by: AMADO DANIELLE MD Electronically signed by: Reviewed: Reviewed by Me (OMAR GOLDSTEIN MD) Transfer of Care Time: 07:00 Care transferred to: Dr Goldstein (TRIXIE DON MD) Departure Communication (Admissions) Time/Spoke to Admitting Phy: 08:43 d/w Dr. Gooden and she accepted pt for admit for her hyponatremia, hypokalemia that is symptomatic with n/v, dizziness, periumbilical abdominal pain. Will continue with IVF for hydration and antiemetics. She will placed queued orders for the patient. (OMAR GOLDSTEIN MD) Impression Primary Impression: Hyponatremia Additional Impressions: Nausea and vomiting Qualified Codes: R11.14 - Bilious vomiting Elevated white blood cell count, unspecified Qualified Codes: D72.829 - Elevated white blood cell count, unspecified Hypokalemia Disposition: 30 STILL A PATIENT Condition: Stable Admissions Decision to Admit Reason: Admit from ER (General) Decision to Admit/Date: Apr 16, 2022 Time/Decision to Admit Time: 08:43 (OMAR GOLDSTEIN MD) Departure-Patient Inst. Referrals: NO,LOCAL PHYSICIAN (PCP/Family) Primary Care Physician TRIXIE DON MD Apr 16, 2022 06:58 OMAR GOLDSTEIN MD Apr 16, 2022 07:27
[2022-04-16 07:00] LABS: CLARITY,URINE CLEAR; COLOR,URINE YELLOW; GLUCOSE, URINE (UA) NEGATIVE (NEGATIVE); KETONES,URINE 2+ (NEGATIVE); LEUKOCYTE ESTERASE ,URINE NEGATIVE (NEGATIVE); NITRITE,URINE NEGATIVE (NEGATIVE); PROTEIN,URINE 2+ (NEGATIVE)
[2022-04-16] MEDS ORDERED: ONDANSETRON 4 MG/2 ML (SDV) Z0FRAN IVP ONE (07:00)
[2022-04-16] MEDS: NS IV 1000 ML 1,000 ML IV SCH ×5 (07:04→23:56)
[2022-04-16 07:10] LABS: BACTERIA,URINE FEW /HPF; BILIRUBIN,URINE 2+ (NEGATIVE); HYALINE CASTS, URINE 0-2 /LPF
[2022-04-16 07:11] LABS: HCG,QUALITATIVE URINE NEGATIVE (NEGATIVE)
[2022-04-16 07:14] LABS: BASOPHILS % (AUTO) 0 % (0-10); EOSINOPHILS % (AUTO) 0 % (0-10); HEMATOCRIT 41 % (35-52); HEMOGLOBIN 15.1 g/dL (11.5-16.0); LYMPHOCYTES # (AUTO) 1.3 10^3/uL (1.0-4.0); LYMPHOCYTES % (AUTO) 7 % (12-44); MEAN CORPUSCULAR HEMOGLOBIN 35 pg (25-34); MEAN CORPUSCULAR HGB CONC 37 g/dL (32-36); MEAN CORPUSCULAR VOLUME 94 fL (80-99); MEAN PLATELET VOLUME 10.4 fL (9.0-12.2); MONOCYTES # (AUTO) 1.2 10^3/uL (0.0-1.0); MONOCYTES % (AUTO) 7 % (0-12); NEUTROPHILS # (AUTO) 16.3 10^3/uL (1.8-7.8); NEUTROPHILS % (AUTO) 86 % (42-75); PLATELET COUNT 265 10^3/uL (130-400); WHITE BLOOD COUNT 18.9 10^3/uL (4.3-11.0)
[2022-04-16 07:18] LABS: BENZODIAZEPINES SCREEN URINE POSITIVE (NEGATIVE); CANNABINOID SCREEN, URINE POSITIVE (NEGATIVE)
[2022-04-16 07:19] LABS: AMPHETAMINE SCREEN, URINE NEGATIVE (NEGATIVE); BARBITURATE SCREEN URINE NEGATIVE (NEGATIVE); COCAINE SCREEN URINE NEGATIVE (NEGATIVE); METHADONE STAT NEGATIVE (NEGATIVE); OPIATE SCREEN URINE NEGATIVE (NEGATIVE); OXYCODONE STAT NEGATIVE (NEGATIVE); PROPOXYPHENE STAT NEGATIVE (NEGATIVE); TRICYCLIC ANTIDEPRESSANTS SCRE NEGATIVE (NEGATIVE)
[2022-04-16 07:32] LABS: ALANINE AMINOTRANSFERASE 38 U/L (0-55); ALKALINE PHOSPHATASE 58 U/L (40-136); BILIRUBIN,TOTAL 0.9 MG/DL (0.1-1.0); BUN/CREATININE RATIO 26; CALCIUM 12.3 MG/DL (8.5-10.1); CARBON DIOXIDE 24 MMOL/L (21-32); CHLORIDE 73 MMOL/L (98-107); CREATININE SERUM 0.91 MG/DL (0.60-1.30); GFR ESTIMATED 80; GLUCOSE 141 MG/DL (70-105); POTASSIUM 3.1 MMOL/L (3.6-5.0)
[2022-04-16 07:33] LABS: ALBUMIN 5.5 GM/DL (3.2-4.5); LIPASE 38 U/L (8-78); TOTAL PROTEIN 8.9 GM/DL (6.4-8.2)
[2022-04-16 07:34] LABS: SODIUM 125 MMOL/L (135-145)
[2022-04-16 07:47] LABS: LYMPHOCYTES % (MANUAL) 5 %; MONOCYTES % (MANUAL) 8 %; NEUTROPHILS % (MANUAL) 87 %
[2022-04-16] MEDS ORDERED: NS IV 1000 ML 1,000 ML IV STA (07:47)
[2022-04-16] MEDS ORDERED: PANTOPRAZOLE 40 MG (PROTONIX) VIAL IV STA (07:47)
[2022-04-16] MEDS ORDERED: ONDANSETRON 4 MG/2 ML (SDV) Z0FRAN IVP STA (07:47)
[2022-04-16] MEDS ORDERED: CATHETER FLUSH 10 ML SYR IV PRN (08:00)
[2022-04-16] MEDS ORDERED: HOLD METFORMIN - RECEIVED CONTRAST 20 ML VIAL IV SCH (08:00)
[2022-04-16] MEDS ORDERED: NS 100 ML (IVPB) BAG IV ONE (08:00)
[2022-04-16] MEDS ORDERED: IOHEXOL 350 MG/ML 100 ML (OMNIPAQUE 350) VIAL IV ONE (08:00)
[2022-04-16] MEDS ORDERED: POTASSIUM CL 10MEQ/50ML IVPB 50 ML IV STA (08:02)
--- NOTE | 2022-04-16 08:26 | Diagnostic Imaging Report ---
CT ABDOMEN/PELVIS W TECHNIQUE: Multiple contiguous axial images were obtained through the abdomen and pelvis after administration of intravenous contrast. All CT scans use one or more of the following dose optimizing techniques: automated exposure control, MA and/or KvP adjustment based on patient size and exam type or iterative reconstruction. INDICATION: Periumbilical pain, nausea, vomiting and diarrhea. COMPARISON: None available. FINDINGS: Lower chest: The lung bases are clear. No pericardial or pleural effusion. Peritoneum: No free intraperitoneal air or fluid. Liver and biliary system: Diffuse low-attenuation liver raises the possibility of hepatic steatosis. No focal hepatic lesion. The gallbladder is normal. No biliary duct dilation. Spleen and Pancreas: Multiple punctate calcified nodules in the spleen are present and due to old granulomas infection. The pancreas enhances normally without mass lesion or peripancreatic inflammatory changes. Adrenals: Normal. tract: The kidneys enhance normally without suspicious mass or obstruction. Urinary bladder is distended without wall thickening. No renal or ureteral stones. IUD is appropriately positioned within the uterus. No adnexal mass. GI tract: Distal esophagus has circumferential wall thickening likely due to esophagitis associated with vomiting. Stomach is partially filled with fluid and does not have wall thickening. No bowel obstruction. No pericolonic inflammatory changes. Normal appendix. Vasculature and Lymph nodes: Normal caliber aorta. No abdominal or pelvic lymphadenopathy. Musculoskeletal: No concerning osseous lesion. Small fat-containing umbilical hernia. IMPRESSION: 1. Normal appendix. 2. No bowel obstruction. 3. No urinary tract stones or obstructive uropathy. 4. Wall thickening of distal esophagus is likely due to esophagitis associated with vomiting. Dictated by: Dictated on workstation # [id number]
[2022-04-16 09:48] VITALS: BP 136/95
[2022-04-16] MEDS ORDERED: ANTACID SUSP 30 ML UDC (MYLANTA) PO PRN (10:15)
[2022-04-16] MEDS ORDERED: ONDANSETRON 4 MG (ZOFRAN) ORAL DISSOLVE TAB PO PRN (10:15)
[2022-04-16] MEDS ORDERED: polyethylene glycoL POWDER 17 GM (MIRALAX) PACK PO PRN (10:15)
[2022-04-16] MEDS ORDERED: MELATONIN 3 MG TABLET PO PRN (10:15)
--- NOTE | 2022-04-16 10:44 | History & Physical-Hospitalist ---
History of Present Illness HPI/Chief Complaint Pt is 41yoCF with a PMH of ADHD who presented to the ER due weakness, nausea, and vomiting. She states her symptoms started on 04/13. She denies eating anything abnormal. She has had this happen 5x in the past year though and thinks that maybe her boyfriend is not a clean cook. She states she hasn't been able to keep anything down since the . She denies any diarrhea. She has had subjective fevers and chills. She also complains of periumbilca abd pain and a headache. She was found to be quite hyponatremic and was admitted for further management. Source: patient Date Seen 04/16/22 Time Seen by a Provider: 10:39 Attending Physician No,Local Physician PCP Admitting Physician: Baudilio Gooden MD Attending Physician: Baudilio Gooden MD Referring Physician Date of Admission Apr 16, 2022 at 09:40 Home Medications & Allergies Home Medications Reviewed patient Home Medication Reconciliation performed by pharmacy medication reconciliations archives technician and/or nursing. Patients Allergies have been reviewed. Allergies Allergies Coded Allergies gabapentin (Verified Allergy, Mild, ulcers, 01/06/20) Pt states "ulcers in my mouth" Past Whusnrd-Cpfxej-Fmvyoo Hx Patient Social History Marrital Status: single Employed/Student: student, full-time Tobacco Use?: No Use of E-Cig and/or Vaping dev: No Substance use?: No Alcohol Use?: Yes Pt feels they are or have been: No Seasonal Allergies Seasonal Allergies: No Current Status Advance Directives: No Preferred Spoken Language: Jamaican Past Medical History Surgeries: Orthopedic ADD/ADHD, Anxiety Blood Disorders: No Adverse Reaction/Blood Tranf: No Family Medical History Reviewed Nursing Family Hx No Pertinent Family Hx Review of Systems Constitutional: chills, fever, malaise, weakness EENTM: no symptoms reported Respiratory: no symptoms reported Cardiovascular: no symptoms reported Gastrointestinal: see HPI Genitourinary: no symptoms reported Musculoskeletal: no symptoms reported Skin: no symptoms reported Psychiatric/Neurological: No Symptoms Reported Physical Exam Physical Exam Vital Signs Vital Signs - First Documented 04/16/22 06:30 Temp 36.9 Pulse 110 Resp 18 B/P (MAP) 170/104 (126) Pulse Ox 99 O2 Delivery Room Air Capillary Refill : Less Than 3 Seconds Height, Weight, BMI Height: '" Weight: lbs. oz. kg; 19.00 BMI Method: General Appearance: No Apparent Distress, WD/WN, Thin HEENT: PERRL/EOMI, Moist Mucous Membranes; No Scleral Icterus (L), No Scleral Icterus (R) Respiratory: Lungs Clear, No Accessory Muscle Use, No Respiratory Distress Cardiovascular: Regular Rate, Rhythm, No JVD, No Murmur Gastrointestinal: Normal Bowel Sounds, Non Tender, Soft Extremity: Normal Capillary Refill, No Calf Tenderness, No Pedal Edema Neurologic/Psychiatric: Alert, Oriented x3 Skin: Normal Color, Warm/Dry Results Results/Procedures Labs Laboratory Tests 04/16/22 07:03 Patient resulted labs reviewed. Imaging [facility] [place], [place] NAME: NINA ELMORE [facility] REC#: [id number] PT STATUS: ADM Elie : 1980 PHYSICIAN: OMAR GOLDSTEIN MD ADMIT DATE: 04/16/22 Signed Date of Exam:04/16/22 CT ABDOMEN/PELVIS W CT ABDOMEN/PELVIS W TECHNIQUE: Multiple contiguous axial images were obtained through the abdomen and pelvis after administration of intravenous contrast. All CT scans use one or more of the following dose optimizing techniques: automated exposure control, MA and/or KvP adjustment based on patient size and exam type or iterative reconstruction. INDICATION: Periumbilical pain, nausea, vomiting and diarrhea. COMPARISON: None available. FINDINGS: Lower chest: The lung bases are clear. No pericardial or pleural effusion. Peritoneum: No free intraperitoneal air or fluid. Liver and biliary system: Diffuse low-attenuation liver raises the possibility of hepatic steatosis. No focal hepatic lesion. The gallbladder is normal. No biliary duct dilation. Spleen and Pancreas: Multiple punctate calcified nodules in the spleen are present and due to old granulomas infection. The pancreas enhances normally without mass lesion or peripancreatic inflammatory changes. Adrenals: Normal. tract: The kidneys enhance normally without suspicious mass or obstruction. Urinary bladder is distended without wall thickening. No renal or ureteral stones. IUD is appropriately positioned within the uterus. No adnexal mass. GI tract: Distal esophagus has circumferential wall thickening likely due to esophagitis associated with vomiting. Stomach is partially filled with fluid and does not have wall thickening. No bowel obstruction. No pericolonic inflammatory changes. Normal appendix. Vasculature and Lymph nodes: Normal caliber aorta. No abdominal or pelvic lymphadenopathy. Musculoskeletal: No concerning osseous lesion. Small fat-containing umbilical hernia. IMPRESSION: 1. Normal appendix. 2. No bowel obstruction. 3. No urinary tract stones or obstructive uropathy. 4. Wall thickening of distal esophagus is likely due to esophagitis associated with vomiting. Dictated by: Dictated on workstation # [id number] Dict: 04/16/22 0820 Trans: 04/16/22 1016 [facility] [id number] Interpreted by: AMADO DANIELLE MD Electronically signed by: AMADO DANIELLE MD 04/16/22 1016 Assessment/Plan Admission Diagnosis hyponatremia Admission Status: Observation Assessment and Plan hyponatremia gastroenteritis likley hypovolemic hyponatremia Leukocytosis likely reactive from vomiting Continue IVF Continue antiemeitics CLD Advance as tolerated Repeat BMP now and in AM unless correcting to quickly PPI Hopefully home tomorrow if Na better and tolerating diet Diagnosis/Problems Diagnosis/Problems (1) Esophagitis (2) Hyponatremia Status: Acute (3) Nausea and vomiting Status: Acute Qualifiers: Vomiting type: bilious vomiting Qualified Codes: R11.14 - Bilious vomiting (4) Hypokalemia Status: Acute BAUDILIO GOODEN MD Apr 16, 2022 10:44
[2022-04-16] MEDS ORDERED: FLU QUADRIvalent (6 months+) 60 mcg/0.5 ml 2022-23 (Fluzone) IM ONE (11:00)
[2022-04-16 11:27] VITALS: BP 136/95
[2022-04-16] MEDS: LORazepam 1 MG (ATIVAN) TAB PO PRN ×2 (13:12→23:56)
[2022-04-16] MEDS: ONDANSETRON 4 MG/2 ML (SDV) Z0FRAN IV PRN ×2 (13:12→23:53)
[2022-04-16] MEDS: PROMETHAZINE 25 MG (PHENERGAN) TAB PO PRN ×2 (13:15→23:53)
[2022-04-16 15:37] LABS: POTASSIUM 3.3 MMOL/L (3.6-5.0)
[2022-04-16 15:42] LABS: CREATININE SERUM 0.89 MG/DL (0.60-1.30)
[2022-04-16 16:00] VITALS: BP 128/83
[2022-04-16 20:00] VITALS: BP 140/95
[2022-04-16 23:59] VITALS: BP 136/81
[2022-04-17] MEDS: NS IV 1000 ML 1,000 ML IV SCH ×3 (02:24→12:34)
[2022-04-17 04:02] VITALS: BP 132/77
[2022-04-17 05:42] LABS: HEMATOCRIT 37 % (35-52); HEMOGLOBIN 13.6 g/dL (11.5-16.0); MEAN CORPUSCULAR HEMOGLOBIN 35 pg (25-34); MEAN CORPUSCULAR HGB CONC 36 g/dL (32-36); MEAN CORPUSCULAR VOLUME 97 fL (80-99); MEAN PLATELET VOLUME 10.9 fL (9.0-12.2); PLATELET COUNT 189 10^3/uL (130-400); WHITE BLOOD COUNT 9.2 10^3/uL (4.3-11.0)
[2022-04-17 05:59] LABS: CALCIUM 8.5 MG/DL (8.5-10.1)
[2022-04-17 06:03] LABS: CREATININE SERUM 0.83 MG/DL (0.60-1.30)
[2022-04-17 07:26] VITALS: BP 122/76
[2022-04-17] MEDS: ONDANSETRON 4 MG/2 ML (SDV) Z0FRAN IV PRN ×2 (08:36→20:16)
[2022-04-17] MEDS: PANTOPRAZOLE 40 MG (PROTONIX) VIAL IV SCH (08:36)
[2022-04-17] MEDS ORDERED: LORA-405 PO (10:19)
[2022-04-17] MEDS ORDERED: DEXT20TA8 PO (10:19)
[2022-04-17] MEDS ORDERED: ACET-2267 PO (10:20)
--- NOTE | 2022-04-17 11:26 | Occ Therapy Progress Note ---
Therapy Progress Note OT orders received and chart was reviewed. Per patient and RN, pt has been up ad lucy and denies any difficulties in completing adls. Pt declines OT services at this time as she reports being back at baseline for adls and is expecting to discharge home later today. 1 visit Elana Peres OT Apr 17, 2022 11:26
[2022-04-17 11:50] VITALS: BP 136/75
[2022-04-17] MEDS: PROMETHAZINE 25 MG (PHENERGAN) TAB PO PRN ×2 (12:33→18:06)
[2022-04-17] MEDS ORDERED: SUCRALFATE 1 GM (CARAFATE) TAB PO NR (12:45)
[2022-04-17] MEDS: ACETAMINOPHEN 325 MG TABLET PO PRN ×2 (13:36→18:06)
[2022-04-17] MEDS ORDERED: 1/2 NS IV SOLUTION 1,000 ML IV SCH (15:30)
--- NOTE | 2022-04-17 15:31 | Progress Note - Hospitalist ---
Subjective HPI/CC On Admission Date Seen by Provider: Apr 17, 2022 Time Seen by Provider: 10:30 Pt is 41yoCF with a PMH of ADHD who presented to the ER due weakness, nausea, and vomiting. She states her symptoms started on 04/13. She denies eating anything abnormal. She has had this happen 5x in the past year though and thinks that maybe her boyfriend is not a clean cook. She states she hasn't been able to keep anything down since the . She denies any diarrhea. She has had subjective fevers and chills. She also complains of periumbilca abd pain and a headache. She was found to be quite hyponatremic and was admitted for further management. Subjective/Events-last exam She still has some abdominal discomfort. She is still nauseous. She has not vomited. She has had some Powerade. Focused Exam Lactate Level 04/16/22 07:49: Lactic Acid Level 1.38 Objective Exam Vital Signs Vital Signs Date Time Temp Pulse Resp B/P (MAP) Pulse Ox O2 Delivery O2 Flow Rate FiO2 04/17/22 11:50 36.4 72 16 136/75 (95) 97 Room Air Capillary Refill : Less Than 3 Seconds General Appearance: No Apparent Distress, Thin Respiratory: Lungs Clear, No Respiratory Distress Cardiovascular: Regular Rate, Rhythm, No Murmur Gastrointestinal: Normal Bowel Sounds, Soft Extremity: Normal Inspection, No Pedal Edema Neurologic/Psychiatric: Alert, Normal Mood/Affect Skin: Normal Color, Warm/Dry Results/Procedures Lab Laboratory Tests 04/17/22 05:36 Patient resulted labs reviewed. Imaging: Reviewed Imaging Report Assessment/Plan Assessment and Plan Assess & Plan/Chief Complaint Acute gastroenteritis Hypokalemia Esophagitis Continue antiemeitics Clear liquids PPI Sucralfate DVT prophylaxis: Ambulation Diagnosis/Problems Diagnosis/Problems (1) Esophagitis Status: Acute (2) Hypokalemia Status: Acute (3) Hyponatremia Status: Acute (4) Nausea and vomiting Status: Acute Qualifiers: Vomiting type: bilious vomiting Qualified Codes: R11.14 - Bilious vomiting SILAS CRUZ MD Apr 17, 2022 15:31
[2022-04-17 16:00] VITALS: BP_SYST 131; BP_SYST 90; BP_DIAS 50; BP_DIAS 86
[2022-04-17] MEDS: D5 1/2 NS W/KCL 20 MEQ/L 1,000 ML IV SCH (16:54)
[2022-04-17] MEDS: SUCRALFATE 1 GM (CARAFATE) TAB PO SCH ×2 (16:55→21:21)
[2022-04-17 19:34] VITALS: BP 135/92
[2022-04-17] MEDS: LORazepam 1 MG (ATIVAN) TAB PO PRN (20:16)
[2022-04-18 00:01] VITALS: BP 158/63
[2022-04-18 00:11] VITALS: BP 126/87
[2022-04-18] MEDS: PROMETHAZINE 25 MG (PHENERGAN) TAB PO PRN ×2 (00:38→09:51)
[2022-04-18] MEDS: ACETAMINOPHEN 325 MG TABLET PO PRN ×2 (00:39→08:57)
[2022-04-18] MEDS: D5 1/2 NS W/KCL 20 MEQ/L 1,000 ML IV SCH ×2 (03:22→11:47)
[2022-04-18 04:09] VITALS: BP 154/88
[2022-04-18] MEDS: SUCRALFATE 1 GM (CARAFATE) TAB PO SCH ×2 (06:26→11:37)
[2022-04-18 07:26] VITALS: BP 154/97
[2022-04-18] MEDS: PANTOPRAZOLE 40 MG (PROTONIX) VIAL IV SCH (08:57)
[2022-04-18] MEDS: ONDANSETRON 4 MG/2 ML (SDV) Z0FRAN IV PRN (08:57)
[2022-04-18] MEDS ORDERED: ONDA4TAB11 PO (10:01)
[2022-04-18 10:03] LABS: POTASSIUM 2.6 MMOL/L (3.6-5.0)
[2022-04-18 10:04] LABS: CALCIUM 8.1 MG/DL (8.5-10.1)
[2022-04-18 10:09] LABS: CREATININE SERUM 0.71 MG/DL (0.60-1.30)
[2022-04-18 10:11] LABS: MAGNESIUM 1.5 MG/DL (1.6-2.4)
[2022-04-18] MEDS ORDERED: MAGNESIUM 1 GM/100 ML IVPB 100 ML IV ONE (10:30)
[2022-04-18] MEDS ORDERED: KCL 20 MEQ TAB (K-DUR) PO ONE ×2 (11:15→12:00)
[2022-04-18] MEDS ORDERED: MAGNESIUM 1 GM/100 ML IVPB 100 ML IV NR (11:30)
[2022-04-18] MEDS: LORazepam 1 MG (ATIVAN) TAB PO PRN (11:37)
[2022-04-18 11:54] VITALS: BP 140/101
[2022-04-18 16:00] VITALS: BP 140/101
--- NOTE | 2022-04-18 18:29 | Discharge Summary ---
Discharge Summary Hospital Course Was the Problem List Reviewed?: Yes Problems/Dx: (1) Esophagitis Status: Acute (2) Hypokalemia Status: Acute (3) Hyponatremia Status: Acute (4) Nausea and vomiting Status: Acute Qualifiers: Qualified Codes: R11.14 - Bilious vomiting (5) Gastroenteritis Status: Acute Hospital Course Date of Admission: Apr 16, 2022 at 09:40 Admission Diagnosis : Acute gastroenteritis Family Physician/Provider: Malika,Local Physician Date of Discharge: 04/18/22 Discharge Diagnosis: Acute gastroenteritis Hospital Course: Shawna Moore is a 41 year old female who was admitted with acute gastroenteritis. She was treated with IV fluids. Her nausea and vomiting impr ang. She was started on a clear liquid diet and this was advanced without issue. She had issues with electrolytes and these were corrected as needed. She was encouraged to discontinue marijuana use. She was discharged home in stable condition. She should follow up with her PCP in about a week. Labs and Pending Lab Test: Laboratory Tests 04/18/22 09:28: Sodium Level 133L, Potassium Level 2.6L, Chloride Level 95L, Carbon Dioxide Level 29, Anion Gap 9, Blood Urea Nitrogen 3L, Creatinine 0.71, Estimat Glomerular Filtration Rate 108, BUN/Creatinine Ratio 4, Glucose Level 110H, Calcium Level 8.1L, Magnesium Level 1.5L Microbiology 04/16/22 Blood Culture - Preliminary, Resulted No growth Home Meds Active Ondansetron Odt (Ondansetron) 4 Mg Tab.rapdis 4 Mg PO Q6H PRN 14 Days Reported Tylenol Extra Strength (Acetaminophen) 500 Mg Tablet 1,000 Mg PO Q8H PRN Ativan (Lorazepam) 1 Mg Tablet 1 Mg PO BID Amphetamine Salts 20 mg Tablet (Dextroamphetamine/Amphetamine) 20 Mg Tablet 20 Mg PO BID Assessment/Pt Instructions See instructions Discharge Planning: <30 minutes discharge planning Discharge Instructions Discharge Diet: No Restrictions Activity as Tolerated: Yes Discharge Physical Examination Vital Signs Vital Signs Date Time Temp Pulse Resp B/P (MAP) Pulse Ox O2 Delivery O2 Flow Rate FiO2 04/18/22 16:00 36.6 82 18 140/101 100 Room Air General Appearance: No Apparent Distress, Thin Respiratory: Lungs Clear, No Respiratory Distress Cardiovascular: Regular Rate, Rhythm, No Murmur Gastrointestinal: Normal Bowel Sounds, Non Tender, Soft Extremity: Normal Inspection, No Pedal Edema Neurologic/Psychiatric: Alert, Normal Mood/Affect Allergies: Coded Allergies: gabapentin (Verified Allergy, Mild, ulcers, 01/06/20) Pt states "ulcers in my mouth" Discharge Summary Date of Admission Apr 16, 2022 at 09:40 Date of Discharge Apr 18, 2022 at 15:58 Discharge Date: Apr 18, 2022 Discharge Time: 15:58 Admission Diagnosis hyponatremia Discharge Diagnosis Acute gastroenteritis Hypokalemia Hypomagnesemia Hyponatremia Esophagitis (1) Esophagitis Status: Acute (2) Hypokalemia Status: Acute (3) Hyponatremia Status: Acute (4) Nausea and vomiting Status: Acute Qualifiers: Qualified Codes: R11.14 - Bilious vomiting (5) Gastroenteritis Status: Acute SILAS CRUZ MD Apr 18, 2022 18:29
== END 2022-04-18 15:58 | disposition home or self-care (01) ==
LOC: EDUNIT# 06:25 → ER FS 06:26 → 4TH 09:40 → UNDOADMOB 09:40 → 4TH 09:50 → UNDODISOB 04-18 15:58
PROVIDERS: ADMIT Family Medicine; ATTEND Internal Medicine
DX: K52.9 Noninfective gastroenteritis and colitis, unspecified (principal); K20.90 Esophagitis, unspecified without bleeding; E87.6 Hypokalemia; E87.1 Hypo-osmolality and hyponatremia; Z79.899 Other long term (current) drug therapy; D72.829 Elevated white blood cell count, unspecified
CPT/HCPCS: 36415; 74177; 80048; 80053; 80306; 80320; 81000; 83605; 83690; 83735; 84703; 85007; 85027; 87040; 87636; 90471; 90686; 93041; 96366; 96376; G0378; Q9967